=== PATIENT | male | born 1950 | race Caucasian/White ===

== ENCOUNTER 2016-08-25 21:09 | Observation (INO) | payer OTHER ==
--- NOTE | 2016-08-25 22:39 | EDPHY ---
H & P Stated Complaint: RUQ abd pain Time Seen by Provider: 08/25/16 22:16 HPI/ROS: HPI CHIEF COMPLAINT: Right lower quadrant pain HISTORY OF PRESENT ILLNESS: This patient very pleasant 65-year-old male denies any significant medical history however he does take cholesterol medicine and blood pressure medication, he presents emergency room with right lower quadrant pain he describes a dull ache nonradiating. He tells me that this started suddenly around 9:00 p.m. last night. He had no flank pain no sharp pain no urinary symptoms. The symptoms have persisted all day. He tells me he feels fatigued, and not 100% himself. He denies diarrhea. He did tell me he had a loose stool that was black in nature after taking Pepto-Bismol last night. No vomiting. his last meal was at 6 o'clock this evening. No urinary symptoms. He currently tells me the pain is 6/10 right lower quadrant. Denies epigastric pain, nausea, vomiting, chest pain or shortness of breath Past Medical History: Hypertension, hyperlipidemia Past Surgical History: Lumbar laminectomy Social History: Lives locally, occasional alcohol use, occasional marijuana use , denies tobacco Family History: noncontributory ROS REVIEW OF SYSTEMS: A comprehensive 10 point review of systems is otherwise negative aside from elements mentioned in the history of present illness. Exam Constitutional triage nursing summary reviewed, vital signs reviewed, awake/ alert. Eyes normal conjunctivae and sclera, EOMI, PERRLA. HENT normal inspection, atraumatic, moist mucus membranes, no epistaxis, neck supple/ no meningismus, no raccoon eyes. Respiratory clear to auscultation bilaterally, normal breath sounds, no respiratory distress, no wheezing. Cardiovascular rate normal, regular rhythm, no murmur, no edema, distal pulses normal. Gastrointestinal soft however tenderness palpation right lower quadrant no rebound, no guarding, normal bowel sounds, no distension, no pulsatile mass. Genitourinary no CVA tenderness. Musculoskeletal no midline vertebral tenderness, full range of motion, no calf swelling, no tenderness of extremities, no meningismus, good pulses, neurovascularly intact. Skin pink, warm, & dry, no rash, skin atraumatic. Neurologic awake, alert and oriented x 3, AAOx3, moves all 4 extremities equally, motor intact, sensory intact, CN II-XII intact, normal cerebellar, normal vision, normal speech. Psychiatric normal mood/affect. Heme/Lymph/Immune no lymphadenopathy. Differential diagnosis includes but is not limited to and in no particular order : Bowel obstruction, appendicitis, gallbladder disease, diverticulitis, colitis , enteritis, perforated viscus, gastritis, GERD, esophagitis, urinary tract infection, pyelonephritis, kidney stones Medical Decision Making: This patient had an IV established obtain blood work, patient had a CT scan abdomen pelvis with IV contrast to rule out acute appendicitis. He will be hydrated normal saline, Dilaudid 0.5 mg for pain control, 4 mg Zofran for nausea. And will re-evaluate. Re-evaluation: CT scan of the Abdomen pelvis with IV contrast The results of the study are this shows acute appendicitis, 14 mm dilated appendix this also shows cyst on kidneys, there is 1 particular cyst on the right kidney that needs further evaluation at a later time. The study was read by Dr. Salgado I viewed the images myself on the PACS system. 1205: Spoke with Dr. Barber. General Sx. Will admit and take patient to OR for Appendectomy. Source: Patient - Personal History Current Tetanus/Diphtheria Vaccine: Yes Current Tetanus Diphtheria and Acellular Pertussis (TDAP): Yes - Medical/Surgical History Hx Asthma: No Hx Chronic Respiratory Disease: No Hx Diabetes: No Hx Cardiac Disease: No Hx Renal Disease: No Hx Cirrhosis: No Hx Alcoholism: No Hx HIV/AIDS: No Hx Splenectomy or Spleen Trauma: No Other PMH: laminectomyL4-L5, MOIZ orthoscopic surgery - Social History Smoking Status: Never smoked Constitutional: Initial Vital Signs Temperature (C) 36.9 C 08/25/16 21:27 Heart Rate 63 08/25/16 21:27 Respiratory Rate 16 08/25/16 21:27 Blood Pressure 125/68 H 08/25/16 21:27 O2 Sat (%) 95 08/25/16 21:27 O2 Delivery Mode Room Air Allergies/Adverse Reactions: No Known Allergies Allergy (Unverified 08/25/16 21:26) Home Medications: Medication Instructions Recorded Aspirin 08/25/16 Crestor 08/25/16 Losartan Potassium 08/25/16 Zetia 08/25/16 Medical Decision Making - Data Points Laboratory Results: Laboratory Results 08/25/16 22:32 08/25/16 22:32 08/25/16 08/25/16 08/25/16 22:32 22:30 21:40 WBC 10.09 H 10^3/uL (3.80-9.50) RBC 4.72 10^6/uL (4.40-6.38) Hgb 15.1 g/dL (13.7-17.5) Hct 42.4 % (40.0-51.0) MCV 89.8 fL (81.5-99.8) MCH 32.0 pg (27.9-34.1) MCHC 35.6 g/dL (32.4-36.7) RDW 13.0 % (11.5-15.2) Plt Count 235 10^3/uL (150-400) MPV 10.1 fL (8.7-11.7) Neut % (Auto) 65.9 % (39.3-74.2) Lymph % (Auto) 22.5 % (15.0-45.0) [place] % (Auto) 6.5 % (4.5-13.0) Eos % (Auto) 4.3 % (0.6-7.6) Baso % (Auto) 0.5 % (0.3-1.7) Nucleat RBC Rel Count 0.0 % (0.0-0.2) Absolute Neuts (auto) 6.65 H 10^3/uL (1.70-6.50) Absolute Lymphs (auto) 2.27 10^3/uL (1.00-3.00) Absolute Monos (auto) 0.66 10^3/uL (0.30-0.80) Absolute Eos (auto) 0.43 H 10^3/uL (0.03-0.40) Absolute Basos (auto) 0.05 10^3/uL (0.02-0.10) Absolute Nucleated RBC 0.00 10^3/uL (0-0.01) Immature Gran % 0.3 % (0.0-1.1) Immature Gran # 0.03 10^3/uL (0.00-0.10) PT 13.4 SEC (12.0-15.0) INR 1.03 (0.83-1.16) APTT 25.5 SEC (23.0-38.0) Sodium 138 mEq/L (134-144) Potassium 4.1 mEq/L (3.5-5.2) Chloride 106 mEq/L (97-110) Carbon Dioxide 21 L mEq/l (22-31) Anion Gap 11 mEq/L (8-16) BUN 19 mg/dL (7-23) Creatinine 1.1 mg/dL (0.7-1.3) Estimated GFR > 60 Glucose 83 mg/dL (70-100) Calcium 9.2 mg/dL (8.5-10.4) Total Bilirubin 0.7 mg/dL (0.1-1.4) Conjugated Bilirubin 0.1 mg/dL (0.0-0.5) Unconjugated Bilirubin 0.6 mg/dL (0.0-1.1) AST 20 IU/L (17-59) ALT 31 IU/L (21-72) Alkaline Phosphatase 61 IU/L (38-126) Total Protein 6.9 g/dL (6.3-8.2) Albumin 3.8 g/dL (3.5-5.0) Lipase 132.0 IU/L (23-300) Urine Color YELLOW Urine Appearance CLEAR Urine pH 5.0 (5.0-7.5) Ur Specific [place] 1.021 (1.002-1.030) Urine Protein 1+ H (NEGATIVE) Urine Ketones NEGATIVE (NEGATIVE) Urine Blood NEGATIVE (NEGATIVE) Urine Nitrate NEGATIVE (NEGATIVE) Urine Bilirubin NEGATIVE (NEGATIVE) Urine Urobilinogen NEGATIVE EU (0.2-1.0) Ur Leukocyte Esterase NEGATIVE (NEGATIVE) Urine RBC 1-3 /hpf (0-3) Urine WBC 1-3 /hpf (0-3) Ur Epithelial Cells Not Reported Urine Mucus TRACE /lpf (NONE-1+) Ur Culture Indicated? NOT INDICATED (NI) Urine Glucose NEGATIVE (NEGATIVE) Medications Given: Discontinued Medications Hydromorphone HCl (Dilaudid) 0.5 mg IVP EDNOW ONE Stop: 08/25/16 22:48 Last Admin: 08/25/16 23:10 Dose: 0.5 mg Sodium Chloride (Ns) 1,000 mls @ 0 mls/hr IV ONCE ONE PRN Reason: Wide Open Stop: 08/25/16 22:48 Last Admin: 08/25/16 23:10 Dose: 1,000 mls Ondansetron HCl (Zofran) 4 mg IVP EDNOW ONE Stop: 08/25/16 22:48 Last Admin: 08/25/16 23:10 Dose: 4 mg Departure - Departure Disposition: [facility] Acute Clinical Impression: Acute appendicitis Qualifiers: Acute appendicitis type: with localized peritonitis Qualifier Code: (K35.3) Acute appendicitis with localized peritonitis Condition: Fair Referrals: ANDREA GONZALEZ [Primary Care Provider] - As per Instructions
[2016-08-25] MEDS ORDERED: HYDROmorphONE/DILAUDID 1 MG/ML SYR IVP ONE (22:47)
[2016-08-25] MEDS ORDERED: NS 1,000 ML IV ONE (22:47)
[2016-08-25] MEDS ORDERED: ONDANSETRON 4 MG/2 ML VIAL IVP ONE (22:47)
[2016-08-25] MEDS ORDERED: IOPAMIDOL (ISOVUE-300) 100 ML BTL IV ONE (22:52)
[2016-08-25 22:54] LABS: % IMMATURE GRANULYOCYTES 0.3 % (0.0-1.1); ABSOLUTE IMMATURE GRANULOCYTES 0.03 10^3/uL (0.00-0.10); ADD DIFF? NO; ADD MORPH? NO; ADD SCAN? NO; ATYPICAL LYMPHOCYTE FLAG 0 (0-99); FRAGMENT RBC FLAG 0 (0-99); HEMATOCRIT 42.4 % (40.0-51.0); HEMOGLOBIN 15.1 g/dL (13.7-17.5); LEFT SHIFT FLG 0 (0-99); LIPEMIA HEMOLYSIS FLAG 90 (0-99); MEAN CELL HEMOGLOBIN CONCENTR. 35.6 g/dL (32.4-36.7); MEAN CELL VOLUME 89.8 fL (81.5-99.8); MEAN PLATELET VOLUME 10.1 fL (8.7-11.7); PLATELET CLUMPS FLAG 0 (0-99); PLATELET COUNT 235 10^3/uL (150-400); RED BLOOD CELL COUNT 4.72 10^6/uL (4.40-6.38)
[2016-08-25 23:06] LABS: INR 1.03 (0.83-1.16); PROTIME(PATIENT) 13.4 SEC (12.0-15.0)
[2016-08-25 23:07] LABS: APTT 25.5 SEC (23.0-38.0)
[2016-08-25 23:07] LABS: ALANINE AMINOTRANSFERASE 31 IU/L (21-72); ALBUMIN 3.8 g/dL (3.5-5.0); ALKALINE PHOSPHATASE 61 IU/L (38-126); ANION GAP 11 mEq/L (8-16); ASPARTATE AMINOTRANSFERASE 20 IU/L (17-59); BILIRUBIN,TOTAL 0.7 mg/dL (0.1-1.4); BILIRUBIN-CONJUGATED 0.1 mg/dL (0.0-0.5); BILIRUBIN-UNCONJUGATED 0.6 mg/dL (0.0-1.1); CALCIUM 9.2 mg/dL (8.5-10.4); CARBON DIOXIDE 21 mEq/l (22-31); CHLORIDE 106 mEq/L (97-110); CREATININE 1.1 mg/dL (0.7-1.3); GLOMERULAR FILTRATION RATE > 60; GLUCOSE 83 mg/dL (70-100); POTASSIUM 4.1 mEq/L (3.5-5.2); SODIUM 138 mEq/L (134-144); TOTAL PROTEIN 6.9 g/dL (6.3-8.2)
[2016-08-25 23:16] LABS: COLOR YELLOW; LEUKOCYTE ESTERASE,URINE NEGATIVE (NEGATIVE); NITRITE,URINE NEGATIVE (NEGATIVE)
[2016-08-25 23:30] LABS: MUCUS TRACE /lpf (NONE-1+)
--- NOTE | 2016-08-25 23:37 | CT ---
CT Scan of the Abdomen and Pelvis (With Contrast) August 25, 2016 at 2319 hours. Indication: Right lower quadrant pain Technique: 96 mL of Isovue 300 were given intravenously by machine power injection. [facility] performed from the diaphragm to the symphysis pubis. Dose reduction techniques w ere utilized. Findings: ABDOMEN: The lung bases are clear. Hypodense lesion is seen in the left lobe of the liver compatible with hepatic cyst measuring 2 cm. Gallbladder is unremarkable. Spleen is unremarkable. Pancreas is un remarkable. Both adrenal glands are normal in size and appearance. Small round hypodense lesions are seen in both kidneys which are mildly exophytic. The largest measures 2 cm at the junction of the mid and inferior pole of the left kidney with appearance of a simple cyst. One lesion appears hyperinten se in the midpole right kidney measuring 1 cm. No evidence for hydronephrosis. Pelvis: The appendix is enlarged measuring 14 mm with adjacent inflammatory change. No evidence for f ree intraperitoneal air. No evidence for small bowel obstruction. No evidence for diverticulitis. Deg enerative change is seen in the lumbar spine. No evidence for bladder calculus. The prostate is enlar ged and nonspecific. Impression: 1. CT findings compatible with appendicitis. 2. Bilateral renal cortical cysts. One may be mildly complex versus solid measuring 1 cm in the right kidney. Recommend follow-up or MRI. Results discussed with Dr. Sanchez Vick.
[2016-08-25] MEDS ORDERED: ERTAPENEM 1 GM in NS 100 ML IV ONE (23:42)
[2016-08-26] MEDS ORDERED: BUPIVACAINE/EPI 0.5% 30 ML SDV ONE (00:42)
[2016-08-26] MEDS ORDERED: SKIN ADHESIVE (DERMABOND) 1 EACH TP ONE (00:42)
[2016-08-26] MEDS ORDERED: HYDROmorphONE/DILAUDID 1 MG/ML SYR IVP PRN (00:50)
[2016-08-26] MEDS ORDERED: HYDROCODONE/APAP 5/325 TAB PO PRN (00:50)
[2016-08-26] MEDS ORDERED: ONDANSETRON 4 MG/2 ML VIAL IVP PRN (00:50)
[2016-08-26] MEDS ORDERED: ACETAMINOPHEN 325 MG TAB PO PRN (00:50)
--- NOTE | 2016-08-26 00:55 | POSTOPPROG ---
Post Op Note Date of Operation: 08/26/16 Surgeon: Ashwin Barber Anesthesiologist: chantal Anesthesia: GET(General Endotracheal) Pre-op Diagnosis: acute appendicitis Post-op Diagnosis: same Procedure: lap appy Findings: suppurative appendix Inf/Abcess present in the surg proc area at time of surgery?: Yes Depth: Organ Space EBL: Minimal Complications: no immediate Specimen(s): appendix
[2016-08-26] MEDS ORDERED: LR 1,000 ML IV SCH (01:00)
--- NOTE | 2016-08-26 01:27 | GHP ---
[f rep st] PREOP HISTORY AND PHYSICAL DATE OF ADMISSION: 08/26/2016 REASON FOR EVALUATION: Acute appendicitis. 65-year-old healthy male, 1-day history of right lower quadrant abdominal pain starting last evening. He had difficulty sleeping last night. His pain did improve somewhat this morning. When his returned from [facility] in [place] this evening, his pain was notably worsened. They presented to the emergency room for further assessment. CAT scan imaging was performed there disclosing a thickened appendix. Surgery has been requested for further recommendations. No prior history of similar complaints. No nausea or vomiting. No fevers or chills. Bowel movements have been soft without diarrhea. No recent voiding complaints. Prior history of hematuria/CRI. He has been seen by Andi Broderick for followup. PAST MEDICAL HISTORY: Hypertension, chronic renal insufficiency, hyperlipidemia. PAST SURGICAL HISTORY: Partial laminectomy. MEDICATIONS: Zetia, Losartan, aspirin, Crestor. ALLERGIES: No known drug allergies. SOCIAL HISTORY: No alcohol or tobacco. 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 FAMILY HISTORY: Noncontributory. REVIEW OF SYSTEMS: Notable for above GI complaints and hematuria, otherwise negative 10 point system. PHYSICAL EXAMINATION: VITAL SIGNS: Temperature 37, blood pressure 112/70, pulse 56, respirations 16. GENERAL: Patient is alert, appropriate, comfortable. NECK: No cervical or supraclavicular lymphadenopathy. HEART: Regular. LUNGS: Clear. ABDOMEN: Soft, minimally distended. Moderate lower quadrant tenderness without rebound or guarding. No masses. Negative Rovsing sign. Negative obturator sign. EXTREMITIES: Unremarkable. NEUROLOGIC: Unremarkable. LABS: White count 10, hemoglobin 15, platelets 230. Electrolytes within reference range. Creatinine 1.1. INR 1.0. Urinalysis negative for white cells and red blood cells. RADIOLOGY: CT with a moderately thickened appendix with periappendiceal inflammatory changes. No free air. No free fluid. Bilateral renal cortical cysts. Possible complex versus solid lesion in the right kidney. IMPRESSION: 1. Early appendicitis. 2. Bilateral renal cortical cysts, mildly suspicious right. RECOMMENDATIONS: 1. Laparoscopic appendectomy. Risks and benefits were explained including bleeding, infection, open conversion, as well as alternative diagnoses. All questions were answered. He desires to proceed. 2. Patient will follow up with Dr. 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 Copy requested to: ANDREA GONZALEZ /[id number]/MODL MTDD
[2016-08-26] MEDS ORDERED: LIDOCAINE 2% 5 ML SDV ONE (01:48)
[2016-08-26] MEDS ORDERED: fentaNYL 100 MCG/2 ML INJ ONE ×2 (01:48→02:54)
[2016-08-26] MEDS ORDERED: SUCCINYLCHOLINE CHLORIDE*ANESTHESIA ONLY*200 MG/10 ML SYR IVP ONE (01:48)
[2016-08-26] MEDS ORDERED: PROPOFOL 200 MG/20 ML VIAL ONE (01:48)
[2016-08-26] MEDS ORDERED: ROCURONIUM 50 MG/5 ML VIAL ONE (01:48)
[2016-08-26] MEDS ORDERED: DEXAMETHASONE 4 MG/ML VIAL ONE (01:48)
[2016-08-26] MEDS ORDERED: ONDANSETRON 4 MG/2 ML VIAL ONE (01:48)
[2016-08-26] MEDS ORDERED: MIDAZOLAM 2 MG/2 ML VIAL ONE (01:50)
[2016-08-26] MEDS ORDERED: SUGAMMADEX SODIUM 200 MG/2 ML VIAL IVP ONE (02:08)
[2016-08-26] MEDS ORDERED: KETOROLAC 30 MG/1 ML SDV ONE (02:08)
[2016-08-26] MEDS ORDERED: IBUPROFEN 600 MG TAB PO SCH (06:00)
[2016-08-26] MEDS: KETOROLAC 15 MG/1 ML SDV IVP SCH ×2 (06:20→12:04)
--- NOTE | 2016-08-26 09:38 | GOP ---
[f rep st] OPERATIVE REPORT DATE OF OPERATION: 08/26/2016 SURGEON: Ashwin Barber MD ANESTHESIA: General. ANESTHESIOLOGIST: Dr. Liu. PREOPERATIVE DIAGNOSIS: Appendicitis. POSTOPERATIVE DIAGNOSIS: Appendicitis. PROCEDURE PERFORMED: Laparoscopic appendectomy. FINDINGS: See below. INDICATIONS: 65-year-old male with acute appendicitis. He is undergoing a laparoscopic appendectomy at this time. Risks and benefits explained of bleeding, infection, open conversion, as well as alternative diagnoses. All questions were answered. He desires to proceed. DESCRIPTION OF PROCEDURE: General anesthesia was induced. The abdomen was preinjected with 0.5% Marcaine with epinephrine. A vertical infraumbilical cut down was created. A 10 mm trocar was placed under direct visualization. Two additional 5 mm left lower quadrant ports were inserted. The appendix was acutely thickened with mild suppuration, without evidence of perforation. The mesoappendix was divided with Harmonic scalpel. The base was transected flush with the cecum with an endoscopic ARIELLE stapler. The specimen was brought through the umbilical port site intact using an EndoCatch pouch. Satisfactory hemostasis was assured. The infraumbilical midline fascia was closed with running Vicryl suture. The wounds were closed with Monocryl suture and Dermabond. The patient was taken recovery uneventfully. Copy requested to: Car Fountain MD /[id number]/MODL MTDD
[2016-08-26 12:00] VITALS: BP 141/71; PULSE 72; RESP 14; TEMP 98; O2SAT 95
[2016-08-26] MEDS ORDERED: SENNOSIDES 1 TAB PO ONE (12:02)
--- NOTE | 2016-08-26 12:53 | SOAPPROG ---
SOAP Progress Note Assessment/Plan: Assessment: doing well. no complaints. afebrile. abd soft. no issues. home today. f/u 1 wk Plan: 08/26/16 12:53 Objective: Vital Signs Temp Pulse Resp BP Pulse Ox 36.6 C 72 14 141/71 H 95 08/26/16 11:59 08/26/16 11:59 08/26/16 11:59 08/26/16 11:59 08/26/16 11:59 08/25/16 08/26/16 08/27/16 05:59 05:59 05:59 Intake Total 2600 Balance 2600 PT 13.4 SEC (12.0-15.0) 08/25/16 22:30 INR 1.03 (0.83-1.16) 08/25/16 22:30 ICD10 Worksheet Patient Problems: Problems Problem Status Diagnosed Acute appendicitis Acute
== END 2016-08-26 13:37 | disposition home or self-care (01) ==
LOC: INTOOBSV 08-26 00:01 → F3N 08-26 03:20
PROVIDERS: ADMIT Surgery; ATTEND Surgery
PROC: 0DTJ4ZZ Resection of Appendix, Percutaneous Endoscopic Approach (ICD-10-PCS; principal; 2016-08-26 01:52)
DX: K35.80 Unspecified acute appendicitis (principal); N28.1 Cyst of kidney, acquired; E78.5 Hyperlipidemia, unspecified; I10 Essential (primary) hypertension
CPT/HCPCS: 44970; 74177; C1727; G0378; 96374; J0330; J1100; J1170; J1335; J1885; J2250; J2405; J2704; J3010; Q9967